=== PATIENT | male | born 1955 | race Caucasian/White ===

== ENCOUNTER 2019-10-14 05:52 | Emergency (ER) | payer OTHER ==
[2019-10-14 06:20] VITALS: BP 119/67; PULSE 85; TEMP 98.3; BMI 25.7
[2019-10-14] MEDS ORDERED: FAMOTIDINE 20 MG/50 ML IVPB 20 MG/50 ML MG IVPB ONE ×2 (07:28→07:57)
[2019-10-14] MEDS ORDERED: ACETAMINOPHEN 1000 MG/100 ML VIAL (NON FORMULARY) IVPB ONE (07:28)
--- NOTE | 2019-10-14 07:28 | PDOC ---
History of Present Illness - General Chief Complaint: Pain Stated Complaint: ABDOMINAL PAIN Time Seen by Provider: 10/14/19 07:21 - History of Present Illness Initial Comments: Srikanth Hyman is a 64yo man with a PMH of asthma/COPD, current smoking, frequent heartburn who presents reporting epigastric discomfort for approximately the past month. The sensation occurs every time he eats. He states that he feels that food becomes "stuck" in the epigastrium whenever he eats. He has tried taking Xantac at home without relief. He says that he has the discomfort after every meal; it is not related to position or time of day. He denies any associated chest pain, SOB, change in bowel habits though he does endorse several episodes of vomiting yesterday. Past History - Past Medical History Allergies/Adverse Reactions: Allergies Allergy/AdvReac Type Severity Reaction Status Date / Time No Known Allergies Allergy Verified 10/14/19 06:20 Home Medications: Ambulatory Orders Albuterol Sulfate Inhaler - [Ventolin HFA Inhaler -] 1 - 2 inh IH Q4H 12/10/12 Albuterol Sulfate Inhaler - [Ventolin HFA Inhaler -] 1 inh IH Q4H PRN #1 inh Budesonide/Formeterol Fumarate [SYMBICORT 160/4.5mcg -] 1 puff IH BID 10/14/19 Oxycodone HCl/Acetaminophen [Oxycodone-Acetaminophen 5-325] 1 tab PO TID PRN 01/28 Ranitidine [Zantac -] 150 mg PO DAILY 10/14/19 Asthma: Yes COPD: No - Psycho Social/Smoking Cessation Hx Smoking Status: Yes Smoking History: Unknown if ever smoked Have you smoked in the past 12 months: Yes Number of Cigarettes Smoked Daily: 5 'Breaking Loose' booklet given: 09/19/16 Hx Alcohol Use: Yes (previous heavy etoh use) Drug/Substance Use Hx: No Substance Use Type: None Review of Systems - Review of Systems Comments:: General: No fevers, no chills, no weight or appetite change, no malaise HEENT: No changes in vision, no changes in hearing, no congestion, no sore throat CV: No chest pain, no palpitations, no LE edema Pulm: No SOB, no cough, no wheezing GI: +Nausea, 3x vomiting, no change in bowel habits, no melena. Epigastric discomfort, see HPI : No frequency, no urgency, no dysuria Musc: No back pain, no joint swelling, no recent injury Skin: No rash, no lesions, no erythema Endo: No excessive thirst, no heat/cold intolerance Heme: No unusual bruising or bleeding, no swollen glands Neuro: No syncope, no numbness/tingling, no focal weakness Vasc: No claudication Psych: No recent change in mood, no SI or HI *Physical Exam - Vital Signs Last Vital Signs Temp Pulse Resp BP Pulse Ox 98.3 F 85 18 119/67 96 10/14/19 06:19 10/14/19 06:19 10/14/19 06:19 10/14/19 06:19 10/14/19 06:19 - Physical Exam General: Comfortable, no acute distress HEENT: Atraumatic, PERRL, EOMI, MMM, voice normal, normal neck ROM Cards: RRR, no murmur appreciated Pulm: Comfortable on room air, clear to auscultation bilaterally Abd: Soft, Minimal epigastric TTP. Nondistended, no rigidity, no guarding Ext: Atraumatic. No LE edema. ROM intact. WWP Skin: Normal color, no rashes or lesions Neuro: A&Ox3, CN grossly intact, normal speech, motor/sensory grossly intact and symmetric Psych: Mood appropriate to situation ED Treatment Course - LABORATORY CBC & Chemistry Diagram: 10/14/19 07:50 10/14/19 07:50 Medical Decision Making - Medical Decision Making 10/14/19 07:28 Srikanth Hyman is a 64yo man with a PMH of asthma/COPD, current smoking, frequent heartburn who presents reporting epigastric discomfort after eating for the past month. - Most likely GERD/gastritis but given age, smoking history will evaluate for cardiac causes of pain. - CBC, CMP, trop, EKG, CXR - Famotidine, acetaminophen 10/14/19 07:57 - EKG reviewed. NSR, HR 77, normal axis, normal intervals. No t-wave or ST changes - Labs pending 10/14/19 09:10 - Labs reviewed, unremarkable. Trop negative - CXR without acute pathology - Update pt. Given age and h/o smoking, will get second trop. Family reluctant to stay. Discussed rationale for repeat trop. Pt willing to remain for repeat test 10/14/19 09:49 - Pt now states that he does not want to wait for 2nd trop - Discussed again reasons for staying for repeat labs. Pt continues to decline. Will leave AMA - Will give information for GI follow up. Home care and return precautions to be discussed. 10/14/19 10:06 - Attempted to have pt sign AMA paperwork and discuss instructions. Pt no longer in his bed. Left prior to receiving paperwork - IV found under the pt's bed Discussed with Dr Antonio Samson PGY2 Discharge - Discharge Information Problems reviewed: Yes Clinical Impression/Diagnosis: Epigastric pain Condition: Stable Disposition: AGAINST MEDICAL ADVICE - Follow up/Referral Referrals: Mary Sumner MD [Primary Care Provider] - Bryan Arenas DO [Staff Physician] - Keron Demarco MD [Staff Physician] - - Patient Discharge Instructions Patient Printed Discharge Instructions: DI for Gastroesophageal Reflux Disease (GERD), GERD Diet Additional Instructions: Discharge Instructions: You were seen in the emergency department for upper abdominal discomfort. This is likely due to stomach irritation and acid reflux, though it is possible that it is related to a problem with your heart. You declined a second blood test to check your heart. Home Care and Follow Up: - Follow the GERD diet using the information provided - Take Xantac or Pepcid every day, even if you are feeling well, until you see a GI specialist - Follow up with GI within the next week. You have been given contact information for Dr Demarco and Dr Arenas. - Seek immediate care for worsening symptoms, severe pain, inability to eat, persistent vomiting, dehydration, or any other medical emergency. - Post Discharge Activity
[2019-10-14] MEDS ORDERED: ACETAMINOPHEN INJECTION 100 ML IVPB ONE (07:57)
[2019-10-14 08:26] LABS: BASO % 0.9 % (0-2.0); EOS % 4.9 % (0-4.5); HEMATOCRIT 42.2 % (35.4-49); LYMPH % 16.6 % (8-40); MCH 31.4 pg (25.7-33.7); MCHC 33.3 g/dl (32.0-35.9); MEAN CELL VOLUME 94.2 fl (80-96); MEAN PLT VOLUME 9.2 fl (7.5-11.1); MONO % 7.9 % (3.8-10.2); NEUT % 69.7 % (42.8-82.8); PLATELET COUNT 248 K/MM3 (134-434); RBC 4.48 M/mm3 (4.00-5.60); RDW 13.3 % (11.9-15.9)
[2019-10-14 08:51] LABS: ALBUMIN 3.4 g/dl (3.4-5.0); BILIRUBIN,TOTAL 0.3 mg/dL (0.2-1); BLOOD UREA NITROGEN 9.5 mg/dL (7-18); CALCIUM 8.4 mg/dL (8.5-10.1); CREATININE 0.9 mg/dL (0.55-1.3); POTASSIUM 3.8 mmol/L (3.5-5.1); TOT PROT 6.7 g/dl (6.4-8.2)
--- NOTE | 2019-10-14 10:10 | PDOC ---
Documentation entered by Allyson Santillan SCRIBE, acting as scribe for Shin Benavidez MD. Shin Benavidez MD: This documentation has been prepared by the Tyrell jim Brenda, SCRIBE, under my direction and personally reviewed by me in its entirety. I confirm that the documentation accurately reflects all work, treatment, procedures, and medical decision making performed by me. Attending Attestation - Resident Resident Name: Usha Samson - ED Attending Attestation I have performed the following: I have examined & evaluated the patient, The case was reviewed & discussed with the resident, I agree w/resident's findings & plan, Exceptions are as noted - HPI HPI: 10/14/19 09:31 The patient is a 64 y/o male, with hx/o copd, heavy smoking c/o epigastric abdominal pain, worse shortly post prandially, with early satiety. pt denies cp /sob/n/v/d/melena/brbpr Allergies: None Known Past Surgical History: None reported Social History: Current everyday cigarette smoker (approximately 5 cigarettes/ day). Denies ETOH and recreational drug use. PCP: Dr. Mary Sumner 10/14/19 10:06 - Physicial Exam PE: 10/14/19 10:08 Patient is awake and alert, well-nourished, in no significant distress Normocephalic and atraumatic PERRLA, EOMI, no scleral icterus Neck is supple CTA RRR Abdomen is soft, nondistended, minimal epigastric discomfort deep palpation only , Davis's is negative, negative tenderness at McBurney's, negative CVA tenderness bilaterally No lower extremity edema - Medical Decision Making 10/14/19 10:09 Patient 64-year-old male with history of COPD, heavy smoking who presents with atraumatic epigastric pain that is exacerbated postprandially as well as early satiety for the past several weeks. In the ER, patient is awake and alert, nontoxic-appearing; CBC/CMP/cardiac enzymes within normal limit. Symptoms not consistent with pancreatitis. EKG shows no evidence of acute ischemia. Chest x -ray reveals no evidence of cardiomegaly/infiltrate or effusion. Patient refused to stay in the ER for repeat cardiac enzymes and wished to sign out AMA. Patient left prior to signing his paperwork.
--- NOTE | 2019-10-14 23:14 | EKG ---
Test Reason : Blood Pressure : / mmHG Vent. Rate : 077 BPM Atrial Rate : 077 BPM P-R Int : 132 ms QRS Dur : 084 ms QT Int : 394 ms P-R-T Axes : 062 028 049 degrees QTc Int : 445 ms NORMAL SINUS RHYTHM NORMAL ECG WHEN COMPARED WITH ECG OF 26-NOV-2014 10:02, VENT. RATE HAS INCREASED Confirmed by EARNEST GRANT MD ([id number]) on 10/14/2019 11:14:20 PM Referred By: Confirmed By:EARNEST GRANT MD
== END 2019-10-14 10:15 | disposition left against medical advice (07) ==
LOC: JER 05:52
PROC: 3E033GC Introduction of Other Therapeutic Substance into Peripheral Vein, Percutaneous Approach (ICD-10-PCS; principal; 2019-10-14)
PROC: 3E033NZ Introduction of Analgesics, Hypnotics, Sedatives into Peripheral Vein, Percutaneous Approach (ICD-10-PCS; 2019-10-14)
DX: K21.9 Gastro-esophageal reflux disease without esophagitis (principal); R10.13 Epigastric pain; J44.9 Chronic obstructive pulmonary disease, unspecified; J45.998 Other asthma; F17.210 Nicotine dependence, cigarettes, uncomplicated
CPT/HCPCS: 36415; 71046-TC-FY; 80053; 82550; 84484; 85025; 93005; 93010; 96365; 96375; 99283-25; J0131

== ENCOUNTER 2020-05-01 21:43 | Emergency (ER) | payer OTHER ==
--- NOTE | 2020-05-01 22:01 | PDOC ---
History of Present Illness - General Chief Complaint: Injury Stated Complaint: FALL/BROKEN LFT ARM Time Seen by Provider: 05/01/20 21:50 Past History - Medical History Allergies/Adverse Reactions: Allergies Allergy/AdvReac Type Severity Reaction Status Date / Time No Known Allergies Allergy Verified 05/01/20 22:01 Home Medications: Ambulatory Orders Albuterol Sulfate Inhaler - [Ventolin HFA Inhaler -] 1 - 2 inh IH Q4H 12/10/12 Albuterol Sulfate Inhaler - [Ventolin HFA Inhaler -] 1 inh IH Q4H PRN #1 inh 11/26/14 Budesonide/Formeterol Fumarate [SYMBICORT 160/4.5mcg -] 1 puff IH BID 10/14/19 Oxycodone HCl/Acetaminophen [Oxycodone-Acetaminophen 5-325] 1 tab PO TID PRN 10/14/19 Ranitidine [Zantac -] 150 mg PO DAILY 10/14/19 Oxycodone HCl/Acetaminophen [Percocet 10-325 mg Tablet] 1 each PO Q6H PRN #12 tablet MDD 4 05/02/20 Asthma: Yes COPD: No - Psycho-Social/Smoking History Smoking Status: Yes Smoking History: Current some day smoker Have you smoked in the past 12 months: Yes Number of Cigarettes Smoked Daily: 5 Information on smoking cessation initiated: No 'Breaking Loose' booklet given: 09/19/16 - Substance Abuse Hx (Audit-C & DAST Scrn) How often the patient has a drink containing alcohol: Monthly or less Number of drinks the patient has on a typical day: 1 or 2 How often the patient has six or more drinks on one occasion: Less than monthly Score: In Men: 4 or > Positive; In Women: 3 or > Positive: 2 Screen Result (Pos requires Nsg. Audit-10AR): Negative In the last yr the pt used illegal drug/Rx for NonMed reason: No Score: Yes response is considered Positive: 0 Screen Result (Positive result requires Nsg. DAST-10): Negative *Physical Exam - Vital Signs Last Vital Signs Temp Pulse Resp BP Pulse Ox 98.8 F 68 20 112/81 96 05/01/20 21:50 05/01/20 21:50 05/01/20 21:50 05/01/20 21:50 05/01/20 21:50 Procedures - Consent Consent obtained: Written, From Patient - Splinting Splint Location: Left: Elbow Pre-Proc Neuro Vasc Exam: normal Hand-Made Type: orthoglass Splint Type: Yes: Long Arm Post-Proc Neuro Vasc Exam: normal Broderick Bandage: yes Sling: Yes Complications: No Post splint xray: Yes Good repositioning: Yes - Joint Reduction Left Joint Reduction Site: left: Radial Head (Radius and ulna from elbow) Pre-Procedure NV Exam: normal Conscious Sedation: Yes (Propofol 200mg) Reduction Attempts: 1 Procedure: Traction Counter Traction Post-Procedure NV Exam: normal Complications: No Post Joint Reduction Film: joint reduced Splint: Yes Immobilized: Yes (Sling) ED Treatment Course - LABORATORY CBC & Chemistry Diagram: 05/01/20 23:28 05/01/20 23:28 Medical Decision Making - Medical Decision Making 05/01/20 22:34 HPI: 64yo M hx chronic back pain (on 10 percocet c/4 hours) and asthma BIBA from home for mechanical fall from standing 1.5hrs ago c/o L elbow pain and deformity, worse with movement, better when holding still against body. Endorses L 4/5th digit paresthesias. No pain meds tried. Pt was walking outside on wet hill with slippers on and slipped in rain falling backwards and fell on outstretched L arm. Pt able to stand and walk after. Had minimal pain but wasn't until got home and family noticed deformity that pt's pain worsened and called EMS. Pt in [facility] prior to fall. Denies head injury, LOC, back pain, neck pain, blood thinner use, alcohol, smoking, drugs, hip pain, focal weakness, dizziness, headache, N/V, vision changes, F/C, syncope, seizure-like activity, abdominal pain, other injuries, wrist or hand pain, shoulder pain. PCP - [facility] ROS: Constitutional: Positive for fall. Negative for chills, fever, fatigue, diaphoresis. HENT: Negative for sore throat, rhinorrhea, congestion. Eyes: Negative for visual disturbance. Respiratory: Negative for shortness of breath, cough, and wheezing. Cardiovascular: Negative for chest pain, palpitations, and leg swelling. Gastrointestinal: Negative for abdominal pain, blood in stool, constipation, diarrhea, nausea, and vomiting. Genitourinary: Negative for dysuria, flank pain, and hematuria. Musculoskeletal: Positive for L elbow pain. Negative for myalgias, back pain, and neck pain. Skin: Negative for rash. Neurological: Negative for light-headedness, dizziness, vertigo, syncope, weakness, numbness and headaches. Psychiatric/Behavioral: Negative for behavioral problems and confusion. PE: Gen: Alert, NAD, uncomfortable-appearing, holding left arm with elbow flexed against body in sling HEENT: PERRL, EOMI, MMM, NCAT. No conjunctival pallor. Sclera are non-icteric. CV: Regular rate and rhythm. No murmurs, rubs, or gallops. PULM: No resp distress. CTAB, no wheezes, rales, or rhonchi. ABD: soft, NT/ND, no rebound tenderness or guarding, no CVA tenderness. BACK: No TTP of c/t/l-spine. No step-offs or deformities. NEURO: AAOx3. PERRL. CN 2-12 intact. Difficult to assess strength in LUE 2/2 pain, 5/5 strength in all other extremities. Sensation to light touch intact in all extremities.No abnormal nystagmus. Normal gait. MSK: Pelvis stable intact nontender. No bony deformities other than LUE. 2+ pulses in all extremities. EXTREMITIES: No cyanosis. No clubbing. No edema. LUE: +elbow deformity/dislocation. Diffusely tender mid-forearm through distal humerus. No TTP of shoulder, proximal humerus, distal forearm, wrist, or hand. Limited ROM of L shoulder/elbow/wrist 2/2 pain in elbow. Moves digits appropriately. SILT in all distributions. Compartments soft. PSYCH: Normal mood and thought pattern. SKIN: Warm and dry. Normal capillary refill. No rashes. No jaundice. MDM: 64yo M hx chronic back pain (on 10 percocet c/4 hours) and asthma BIBA from home for mechanical fall from standing 1.5hrs ago c/o L elbow pain and deformity. neurologically intact, LUE neurovascularly intact, deformity L elbow. Obtain LUE imaging to eval for dislocation and fx. Mechanical fall - no concern for syncope or seizure. Neurologically intact and no c-spine TTP/pain, but due to distracting injury and age and fall, obtain CTH/c-spine to r/o ICH or fx or subluxation. -Pre-op labs -EKG -Pain management: 50 fentanyl -Zofran 4 -XR L humerus, elbow, and forearm -Consult ortho -CTH/c-spine due to distracting injury -Dispo: likely d/c home pending w/u and reduction 05/01/20 23:08 XR read: notable for ulnar and radial dislocation Consulted Dr Carrasquillo - will come see pt. Consent obtained for conscious sedation - form signed by pt. 05/02/20 00:16 Propofol 200mg used for conscious sedation Reduction performed with Dr Carrasquillo Splint and sling placed with Dr Carrasquillo Pre and post-neurovascular exams intact, no abnormalities Post-reduction XR shows correct positioning No complications 05/02/20 01:24 CTH reviewed: no acute pathology CT c-spine reviewed: no acute significant pathology Pt ambulated without difficulty. Tolerated PO. Pt takes 10 percocet c/4hrs, managed by pain doctor Dr Nuñez. Percocet Rx sent to pharmacy. Will discharge home with 1wk ortho f/u. Return precautions given. Pt understands all discharge instructions and all questions were answered. Discharge - Discharge Information Problems reviewed: Yes Clinical Impression/Diagnosis: Dislocation, elbow closed, Fall, History of conscious sedation Condition: Improved Disposition: HOME - Admission No - Additional Discharge Information Prescriptions: Oxycodone HCl/Acetaminophen [Percocet 10-325 mg Tablet] 1 each PO Q6H PRN #12 tablet MDD 4 PRN Reason: Pain - Follow up/Referral Referrals: Mary Sumner MD [Primary Care Provider] - Louie Carrasquillo MD [Staff Physician] - - Patient Discharge Instructions Patient Printed Discharge Instructions: DI for Elbow Dislocation, DI for Moderate Sedation Additional Instructions: You have been seen in the Emergency Department for your elbow dislocation. It has been reduced into the correct location and a cast and sling was placed. Follow-up with Dr Carrasquillo (the Orthopedic Surgeon) in 1 week. Call his office in the morning to make an appointment. If you experience pain, you can take Tylenol or Ibuprofen as directed on the medication bottle, but do not exceed 3g of Ibuprofen or 4g of Tylenol a day. We have also sent a Percocet prescription to your pharmacy and you can take as prescribed as needed for additional pain. Return to the Emergency Department immediately if you experience numbness, inability to move your fingers, fever, worsening pain not controlled by medications, or any other new or worsening symptom. - Post Discharge Activity Work/Back to School Note: Back to Work
[2020-05-01 22:05] VITALS: BMI 25.2
[2020-05-01] MEDS ORDERED: ONDANSETRON 4 MG/2 ML VIAL IVPUSH ONE (22:16)
--- NOTE | 2020-05-01 22:42 | PDOC ---
Documentation entered by Kumar Vega SCRIBE, acting as scribe for Jessica Wise DO. Jessica Wise DO: This documentation has been prepared by the Sienna jim inKumar SCRIBE, under my direction and personally reviewed by me in its entirety. I confirm that the documentation accurately reflects all work, treatment, procedures, and medical decision making performed by me. Attending Attestation - Resident Resident Name: Pamela Resendez - ED Attending Attestation I have performed the following: I have examined & evaluated the patient, The case was reviewed & discussed with the resident, I agree w/resident's findings & plan, Exceptions are as noted - HPI HPI: 05/01/20 22:43 The patient is a 64 year old male with a significant past medical history of asthma, COPD, current smoking, and frequent heartburn who presents to the ED for evaluation of an injured left arm s/p fall from standing about 1.5 hours ago. The patient reports he was outside walking on a wet hill wearing slippers when h e fell backwards, causing him to land on his outstretched left hand endorses. He also endorses paresthesia to his fourth and fifth left digits. The patient denies LOC, anticoagulation usage, shoulder pain, fever, chills, shortness of breath, or chest pain. He denies any other symptoms. Allergies: None Known Past Surgical History: None reported Social History: Current everyday cigarette smoker (approximately 5 cigarettes/day). Denies alcohol and recreational drug use. PCP: Dr. Mary Sumner - Physicial Exam PE: 05/01/20 22:43 Constitutional: Awake, alert, oriented. No acute distress. Head: Normocephalic. Atraumatic Eyes: PERRL. EOMI. Conjunctivae are not pale. ENT: Mucous membranes are moist and intact. Neck: Supple. Full ROM. no c/t/l spine ttp, stepoffs or deformities Cardiovascular: Regular rate. Regular rhythm. S1, S2 regular. Distal pulses are 2+ and symmetric. Pulmonary/Chest: No evidence of respiratory distress. Clear to auscultation bilaterally No wheezing, rales or rhonchi. Abdominal: Soft and non-distended. There is no tenderness. No rebound, guarding or rigidity. No organomegaly. No palpable masses. Good bowel sounds. Back: No CVA tenderness. Musculoskeletal: +diffuse tenderness from mid forearm to distal humerus, limited ROM of left upper extremity secondary to pain. No edema. No cyanosis. No clubbing. Nocalf tenderness. Radial/pedal pulses are intact and 2+ bilaterally Skin: Skin is warm and dry. No petechiae. No purpura. Neurological: Alert and oriented to person, place, and time. Cranial nerves II-XII are grossly intact. Normal speech. Strength is grossly symmetric. No sensory deficits. Psychiatric: Good eye contact. Normal interaction, affect and behavior. 05/01/20 22:47 - Medical Decision Making 05/01/20 22:37 a/p: 64yo male s/p a mechanical slip and fall outside landing on a extended outstretched hand- now with L arm pain -pain at the elbow and the distal humerus -neurovasc intact -concern for fx dislocation -pain meds given, iv placed, pt taken to xray stat -will send for ct head and c spine 05/01/20 22:40 pt with dislocated elbow 05/01/20 23:[address] carrasquillo, will come into help reduce the elbow 05/01/20 23:26 pt consented for conscious sedation 05/02/20 00:09 pt has been reduced under conscious sedation by Dr. Carrasquillo 05/02/20 00:12 xray shows good alignment pt awake from conscious sedation will send for head/ct spine 05/02/20 01:[address] FINDINGS: No acute intracranial abnormality. No hemorrhage. The skull is intact. There are nasal bone fractures but no overlying soft tissue swelling. Could be old. However correlate with any tenderness/trauma to the nose. C SPINE CT FINDINGS: Negative for cervical spine fracture or malalignment. Degenerative changes. Small blebs right lung apex. Read by: Dr. Wilder Vazquez 05/02/20 01:16 head and c spine neg will po challenge, ambulate and dc to home 05/02/20 01:18 Heart Score/ECG Review - ECG Intrepretation Comment:: 05/02/20 00:31 sinus at 68, nl axis, nl intervals, no acute st/t wave findings Discharge - Discharge Information Problems reviewed: Yes Clinical Impression/Diagnosis: Dislocation, elbow closed, Fall, History of conscious sedation Condition: Improved Disposition: HOME - Admission No - Additional Discharge Information Prescriptions: Oxycodone HCl/Acetaminophen [Percocet 5-325 mg Tablet] 1 tab PO Q6H PRN #12 tablet MDD 4 PRN Reason: Moderate Pain - Follow up/Referral Referrals: Mary Sumner MD [Primary Care Provider] - Louie Carrasquillo MD [Staff Physician] - - Patient Discharge Instructions Patient Printed Discharge Instructions: DI for Elbow Dislocation, DI for Moderate Sedation Additional Instructions: You have been seen in the Emergency Department for your elbow dislocation. It has been reduced into the correct location and a cast and sling was placed. Follow-up with Dr Carrasquillo (the Orthopedic Surgeon) in 1 week. Call his office in the morning to make an appointment. If you experience pain, you can take Tylenol or Ibuprofen as directed on the medication bottle, but do not exceed 3g of Ibuprofen or 4g of Tylenol a day. We have also sent a Percocet prescription to your pharmacy and you can take as prescribed as needed for additional pain. Return to the Emergency Department immediately if you experience numbness, inability to move your fingers, fever, worsening pain not controlled by medications, or any other new or worsening symptom. - Post Discharge Activity Work/Back to School Note: Back to Work Procedures - Consent Consent obtained: Written, From Patient - Joint Reduction Left Joint Reduction Site: left: Posterior Dislocation (elbow dislocation) Pre-Procedure NV Exam: normal Conscious Sedation: Yes (propofol) Reduction Attempts: 1 Procedure: Traction Counter Traction Post-Procedure NV Exam: normal Complications: No Post Joint Reduction Film: joint reduced Splint: Yes Immobilized: Yes Progress: 05/02/20 00:25 Dr. carrasquillo at the bedside to reduce the fracture
[2020-05-01] MEDS ORDERED: SODIUM CHLORIDE 0.9% 500 ML INFUS.BAG IV ONE (22:58)
[2020-05-01] MEDS ORDERED: PROPOFOL 200 MG/20 ML VIAL IVPUSH ONE (23:17)
[2020-05-01 23:35] LABS: EOS % 1.8 % (0-4.5); HEMATOCRIT 41.7 % (35.4-49); HEMOGLOBIN 13.6 GM/dL (11.7-16.9); LYMPH % 17.9 % (8-40); MCH 29.8 pg (25.7-33.7); MCHC 32.7 g/dl (32.0-35.9); MEAN CELL VOLUME 91.2 fl (80-96); MEAN PLT VOLUME 9.8 fl (7.5-11.1); MONO % 6.2 % (3.8-10.2); NEUT % 73.1 % (42.8-82.8); PLATELET COUNT 262 K/MM3 (134-434); RBC 4.58 M/mm3 (4.00-5.60); RDW 14.7 % (11.9-15.9); WHITE BLOOD COUNT 12.3 K/mm3 (4.0-10.0)
[2020-05-01] MEDS ORDERED: RAPID SEQUENCE INTUBATION KIT NR ONE (23:35)
[2020-05-01 23:43] LABS: INR 0.93 (0.83-1.09)
[2020-05-01 23:45] LABS: ACTIVATED PTT 25.3 SECONDS (25.2-36.5)
[2020-05-02 00:17] LABS: ALBUMIN 3.7 g/dl (3.4-5.0); BILIRUBIN,TOTAL 0.3 mg/dL (0.2-1); BLOOD UREA NITROGEN 10.7 mg/dL (7-18); CALCIUM 8.6 mg/dL (8.5-10.1); CREATININE 0.8 mg/dL (0.55-1.3); POTASSIUM 4.1 mmol/L (3.5-5.1); TOT PROT 7.1 g/dl (6.4-8.2)
[2020-05-02 03:31] VITALS: BP 133/77; PULSE 94; TEMP 97.3
--- NOTE | 2020-05-02 12:10 | EKG ---
Test Reason : Blood Pressure : / mmHG Vent. Rate : 068 BPM Atrial Rate : 068 BPM P-R Int : 126 ms QRS Dur : 086 ms QT Int : 406 ms P-R-T Axes : 067 029 053 degrees QTc Int : 431 ms NORMAL SINUS RHYTHM NORMAL ECG WHEN COMPARED WITH ECG OF 14-OCT-2019 07:47, NO SIGNIFICANT CHANGE WAS FOUND Confirmed by LENORA PONCE MD ([id number]) on 05/02/2020 12:10:02 PM Referred By: Confirmed By:LENORA PONCE MD
--- NOTE | 2020-05-02 14:17 | CON.ORTH ---
Consult Consult Specialty:: orthopedic surgery Reason for Consultation:: right elbow pain - History of Present Illness Chief Complaint: right elbow pain History of Present Illness: 64y M here for L elbow pain after trip and fall noted pain, deformity after fall notes no numbness or tingling no pain elsewhere no previous elbow injuries - History Source History Provided By: Patient, Significant Other, Medical Record Limitations to Obtaining History: No Limitations - Past Medical History Pulmonary: Yes: Asthma Musculoskeletal: Yes: Chronic low back pain - Alcohol/Substance Use Hx Alcohol Use: Yes (previous heavy etoh use) History of Substance Use: reports: None - Smoking History Smoking history: Current some day smoker Have you smoked in the past 12 months: Yes Aproximately how many cigarettes per day: 5 - Social History Usual Living Arrangement: With Significant Other ADL: Independent Occupation: Disabled History of Recent Travel: No Home Medications - Allergies Allergies/Adverse Reactions: Allergies Allergy/AdvReac Type Severity Reaction Status Date / Time No Known Allergies Allergy Verified 05/01/20 22:01 - Home Medications Home Medications: Ambulatory Orders Albuterol Sulfate Inhaler - [Ventolin HFA Inhaler -] 1 - 2 inh IH Q4H 12/10/12 Albuterol Sulfate Inhaler - [Ventolin HFA Inhaler -] 1 inh IH Q4H PRN #1 inh 11/26/14 Budesonide/Formeterol Fumarate [SYMBICORT 160/4.5mcg -] 1 puff IH BID 10/14/19 Oxycodone HCl/Acetaminophen [Oxycodone-Acetaminophen 5-325] 1 tab PO TID PRN 10/14/19 Ranitidine [Zantac -] 150 mg PO DAILY 10/14/19 Oxycodone HCl/Acetaminophen [Percocet 10-325 mg Tablet] 1 each PO Q6H PRN #12 tablet MDD 4 05/02/20 Review of Systems - Review of Systems Constitutional: denies: Chills, Diaphoresis, Fever Eyes: denies: Blind Spots, Blurred Vision, Double Vision HENT: denies: Difficult Swallowing, Ear Discharge, Ear Pain Cardiovascular: denies: Chest Pain, Edema, Palpitations Physical Exam for Ortho Vital Signs: Vital Signs Temperature 97.3 F L 05/02/20 01:49 Pulse Rate 94 H 05/02/20 01:49 Respiratory Rate 19 05/02/20 01:49 Blood Pressure 133/77 07/23/20 01:49 O2 Sat by Pulse Oximetry (%) 94 L 05/02/20 01:49 Constitutional: Yes: Well Nourished, No Distress, Anxious Neck: Yes: Supple Cardiovascular: Yes: Regular Rate and Rhythm Respiratory: Yes: Regular Gastrointestinal: Yes: Soft. No: Distention Labs: CBC, BMP 05/01/20 23:28 05/01/20 23:28 INR, PTT INR 0.93 (0.83-1.09) 05/01/20 23:28 - Upper Extremity Method of Injury: Yes: Fall Elbow: Yes: Left, Deformity, Ecchymosis, Pain, Swelling, Tenderness, Other (distally sensation intact to LT, 2+ radial pulse, thumbs up, ok sign, finger cross intact). No: Bone Exposed Imaging - Results X-ray: Report Reviewed, Image Reviewed (elbow dislocation noted) Problem List - Problems (1) Dislocation, elbow closed Assessment/Plan: I reviewed today's findings with the patient and his advised he suffered a dislocation urgent reduction with sedation recommended reviewed small risk of neurovascular injury possible redislocation, possible need for surgical stabilization pt voiced understanding and elected to proceed the patient was sedated by the ED staff the elbow was hung in traction a manual reduction was effected, the elbow was felt to reduce a long arm splint was placed with the forearm in supation neurovascular exam remains intact after reduction post reduction radiographs show concentric reduction follow up in the office within 1 week Problems reviewed: Yes Code(s): S53.106A - UNSP DISLOCATION OF UNSP ULNOHUMERAL JOINT, INIT ENCNTR Qualifiers: Encounter type: initial encounter Laterality: left Qualified Code(s): S53.105A - Unspecified dislocation of left ulnohumeral joint, initial encounter
== END 2020-05-02 01:46 | disposition home or self-care (01) ==
LOC: JER 21:43
PROC: 3E033NZ Introduction of Analgesics, Hypnotics, Sedatives into Peripheral Vein, Percutaneous Approach (ICD-10-PCS; principal; 2020-05-01)
PROC: 3E033GC Introduction of Other Therapeutic Substance into Peripheral Vein, Percutaneous Approach (ICD-10-PCS; 2020-05-01)
DX: S53.145A Lateral dislocation of left ulnohumeral joint, initial encounter (principal)
CPT/HCPCS: 36415; 70450-TC; 72125-TC; 73060-TC-LT-FY; 73070-TC-LT-FY; 73090-TC-LT-FY; 80053; 85025; 85610; 85730; 86850; 86900; 86901; 93005; 93010; 99285-25

== ENCOUNTER 2020-08-07 01:33 | Inpatient (IN) | payer OTHER ==
--- NOTE | 2020-08-07 02:03 | PDOC ---
History of Present Illness - General Chief Complaint: Pain, Acute Stated Complaint: ABD PAIN Time Seen by Provider: 08/07/20 02:02 History Source: Patient, Old Records Exam Limitations: Language Barrier - History of Present Illness Initial Comments: 08/07/20 02:02 Srikanth Hyman is a 65M with PMH asthma/COPD, smoker, frequent heartburn, presenting with epigastric pain and difficulty tolerating PO. Patient has had 4 days of eating and having food stuck in his upper abdomen. Last night ate some chicken and it felt like it was stuck in his stomach, today ate one piece of steak and it also felt stuck. Has been unable to tolerate secretions for 2 days, spitting up constantly. Denies fever, chills N/V/C/D, chest pain, urinary sx, TIM, vision problems, dizziness. Intermittent epigastric pain described as cramping at times unrelated to food intake. Never had an issue like this before. No thyroid disease or neck pain. Last BM yesterday and normal, no abd surgeries. Has known GERD, tried taking medications without effect. NKDA. Denies alcohol/drugs/tobacco. Past History - Medical History Allergies/Adverse Reactions: Allergies Allergy/AdvReac Type Severity Reaction Status Date / Time No Known Allergies Allergy Verified 08/07/20 01:56 Home Medications: Ambulatory Orders Albuterol Sulfate Inhaler - [Ventolin HFA Inhaler -] 1 - 2 inh IH Q4H 12/10/12 Albuterol Sulfate Inhaler - [Ventolin HFA Inhaler -] 1 inh IH Q4H PRN #1 inh 11/26/14 Budesonide/Formeterol Fumarate [SYMBICORT 160/4.5mcg -] 1 puff IH BID 10/14/19 Oxycodone HCl/Acetaminophen [Oxycodone-Acetaminophen 5-325] 1 tab PO TID PRN 10/14/19 Ranitidine [Zantac -] 150 mg PO DAILY 10/14/19 Oxycodone HCl/Acetaminophen [Percocet 10-325 mg Tablet] 1 each PO Q6H PRN #12 tablet MDD 4 05/02/20 Asthma: Yes COPD: No - Psycho-Social/Smoking History Smoking Status: Yes Smoking History: Current every day smoker Have you smoked in the past 12 months: Yes Number of Cigarettes Smoked Daily: 6 Information on smoking cessation initiated: No 'Breaking Loose' booklet given: 09/19/16 - Substance Abuse Hx (Audit-C & DAST Scrn) How often the patient has a drink containing alcohol: Monthly or less Number of drinks the patient has on a typical day: 1 or 2 How often the patient has six or more drinks on one occasion: Less than monthly Score: In Men: 4 or > Positive; In Women: 3 or > Positive: 2 Screen Result (Pos requires Nsg. Audit-10AR): Negative In the last yr the pt used illegal drug/Rx for NonMed reason: No Score: Yes response is considered Positive: 0 Screen Result (Positive result requires Nsg. DAST-10): Negative Review of Systems - Review of Systems Able to Perform ROS?: Yes Constitutional: No: Symptoms Reported HEENTM: No: Symptoms Reported Respiratory: No: Symptoms reported Cardiac (ROS): No: Symptoms Reported ABD/GI: Yes: Difficulty Swallowing, Nausea, Poor Appetite, Poor Fluid Intake, Vomiting. No: Constipated, Diarrhea, Abdominal cramping : No: Symptoms Reported Musculoskeletal: No: Symptoms Reported Integumentary: No: Symptoms Reported Neurological: No: Symptoms reported Endocrine: No: Symptoms Reported Hematologic/Lymphatic: No: Symptoms Reported All Other Systems: Reviewed and Negative *Physical Exam - Vital Signs Last Vital Signs Temp Pulse Resp BP Pulse Ox 98.2 F 86 18 140/83 98 08/07/20 01:35 08/07/20 01:35 08/07/20 01:35 08/07/20 01:35 08/07/20 01:35 - Physical Exam General Appearance: Yes: Nourished, Appropriately Dressed, Other (sitting in bed, spits into a cup every 2 minutes). No: Apparent Distress HEENT: positive: EOMI, AKUA, Normal Voice, Symmetrical, Pharynx Normal, Hearing Grossly Normal. negative: Scleral Icterus (R), Scleral Icterus (L), Pharyngeal Erythema, Tonsillar Exudate, Tonsillar Erythema Neck: positive: Trachea midline, Normal Thyroid, Supple. negative: Tender, Rigid, Lymphadenopathy (R), Lymphadenopathy (L), Tender lateral, Tender midline, Thyromegaly Respiratory/Chest: positive: Lungs Clear, Normal Breath Sounds. negative: Chest Tender, Respiratory Distress, Accessory Muscle Use, Crackles, Rales, Rhonchi, Stridor, Wheezing Cardiovascular: positive: Regular Rhythm, Regular Rate. negative: Murmur Gastrointestinal/Abdominal: positive: Normal Bowel Sounds, Tender (epigastric), Flat, Soft. negative: Organomegaly, Pulsatile Mass, Protuberent, Distended, Guarding, Rebound Musculoskeletal: positive: Normal Inspection. negative: CVA Tenderness, Dec reased Range of Motion, Vertebral Tenderness Extremity: positive: Normal Capillary Refill, Normal Inspection, Normal Range of Motion, Pelvis Stable. negative: Tender, Pedal Edema, Swelling, Calf Tenderness Integumentary: positive: Normal Color, Dry, Warm Neurologic: positive: Fully Oriented, Alert, Normal Mood/Affect, Normal Response ED Treatment Course - LABORATORY CBC & Chemistry Diagram: 08/07/20 02:47 08/07/20 04:57 - RADIOLOGY Radiograph Interpretation: 08/07/20 04:21 Stone Gibbs MD wrote on Aug 07, 2020 at 04:17 AM: Referring Physician: LANE BAEZ Patient Name: SRIKANTH HYMAN THIS IS A PRELIMINARY REPORT DATE OF SERVICE: 2020-08-07 03:04:57 IMAGES: 703 EXAM: CHEST CT WITHOUT CONTRAST HISTORY: Left food bolus/impaction dysphagia COMPARISON: 02/08/19 FINDINGS: There is no aortic aneurysm. There is no significant mediastinal or hilar adenopathy. The heart size is normal. The trachea and bronchi are patent. There is no pleural or pericardial effusion. The lungs are clear. No change in multiple right pleural nodules/plaques. The liver is fatty. There is moderate distention of the esophagus with debris, possibly indicating achalasia, but there is no discrete impacted bolus. No paraesophageal edema. IMPRESSION: Possible achalasia without an obvious impacted food bolus. Stable right lung pleural nodules/plaques. Fatty liver. Medical Decision Making - Medical Decision Making 08/07/20 03:17 Patient reports a few days of difficulty tolerating secretions with poor PO intake, nausea. No history of diabetes and no prior esophageal pathology or gastroparesis. Possible food bolus impaction vs. achalasia vs. stricture. Getting basic labs, CXR, ECG. CT non-con of chest for eval esophagus for food bolus. Pepcid and Zofran for symptom control. Unable to tolerate PO liquids without spitting up. 08/07/20 04:22 CT report shows debris in esophagus without obvious food bolus consistent with achalasia. Will admit patient and consult GI. Patient otherwise 08/07/20 04:26 Lab notable for: - K elevated but hemolyzed, will recheck - remaining labs checked and WNL Will admit for GI eval in the morning, likely swallow study vs. endoscopy 08/07/20 05:[address] Arenas, recommends NPO status, will evaluate later today. Discussed case with C[facility] ADMINISTRATOR [place], admitted to Med/Surg. 08/07/20 05:48 Dr. Arenas would like rapid PCR testing for Endoscopy suite. Dr. Loo contacted and approves. Lab contacted and upgraded testing. 08/07/20 07:02 Repeat K normal, repeat BMP Na normal. Discharge - Discharge Information Problems reviewed: Yes Clinical Impression/Diagnosis: Abdominal pain Qualifiers: Abdominal location: epigastric Qualified Code(s): R10.13 - Epigastric pain Difficulty swallowing Qualifiers: Dysphagia type: unspecified Qualified Code(s): R13.10 - Dysphagia, unspecified Condition: Fair - Admission Yes - Follow up/Referral - Patient Discharge Instructions - Post Discharge Activity
--- NOTE | 2020-08-07 02:05 | PDOC ---
Attending Attestation - Resident Resident Name: Ruy Stephens - ED Attending Attestation I have performed the following: I have examined & evaluated the patient, The case was reviewed & discussed with the resident, I agree w/resident's findings & plan - HPI HPI: 08/07/20 02:53 see resident hpi - Physicial Exam PE: 08/07/20 02:53 see resident exam - Medical Decision Making 08/07/20 02:53 65-year-old male with discomfort when attempting to eat, patient reports feeling like his food is getting stuck, there is no history of vomiting, he has been producing what he reports is extra saliva and spitting all day Per patient his primary care had him set up for outpatient endoscopy referral prior to Covid which was delayed EKG within normal limits We will admit to medical service due to inability to tolerate p.o. GI consult from the emergency department Discharge - Discharge Information Problems reviewed: Yes Clinical Impression/Diagnosis: Abdominal pain Condition: Fair - Follow up/Referral Referrals: Mary Sumner MD [Primary Care Provider] - - Patient Discharge Instructions - Post Discharge Activity
[2020-08-07] MEDS ORDERED: FAMOTIDINE 20 MG/50 ML IVPB 20 MG/50 ML MG IVPB ONE (02:28)
[2020-08-07 03:01] LABS: BASO % 0.4 % (0-2.0); HEMATOCRIT 43.6 % (35.4-49); HEMOGLOBIN 14.1 GM/dL (11.7-16.9); LYMPH % 8.4 % (8-40); MCHC 32.5 g/dl (32.0-35.9); MEAN CELL VOLUME 86.2 fl (80-96); MEAN PLT VOLUME 9.3 fl (7.5-11.1); MONO % 6.8 % (3.8-10.2); NEUT % 83.4 % (42.8-82.8); PLATELET COUNT 282 K/MM3 (134-434); RBC 5.06 M/mm3 (4.00-5.60); RDW 17.2 % (11.9-15.9); WHITE BLOOD COUNT 13.2 K/mm3 (4.0-10.0)
[2020-08-07 03:10] LABS: INR 0.94 (0.83-1.09); PROTHROMBIN TIME (PATIENT) 11.4 SEC (9.7-13.0)
[2020-08-07 03:13] LABS: ACTIVATED PTT 33.7 SECONDS (25.2-36.5)
[2020-08-07 03:26] LABS: CHLORIDE 102 mmol/L (98-107); SODIUM 121 mmol/L (136-145)
[2020-08-07 03:28] LABS: ALBUMIN 3.6 g/dl (3.4-5.0); BLOOD UREA NITROGEN 9.4 mg/dL (7-18); CALCIUM 8.4 mg/dL (8.5-10.1); CO2 22 mmol/L (21-32)
[2020-08-07 03:29] LABS: GLUCOSE,RANDOM 79 mg/dL (74-106)
[2020-08-07 03:32] LABS: CREATININE 0.9 mg/dL (0.55-1.3)
[2020-08-07 03:33] LABS: TOT PROT 8.9 g/dl (6.4-8.2)
[2020-08-07 03:34] LABS: ALK PHOS 100 U/L (45-117)
[2020-08-07 04:18] LABS: ANION GAP -3 MMOL/L (8-16); POTASSIUM > 10.0 mmol/L (3.5-5.1); SGOT/AST 181 U/L (15-37)
[2020-08-07 05:30] LABS: POTASSIUM 4.1 mmol/L (3.5-5.1)
--- NOTE | 2020-08-07 05:38 | HP ---
Admitting History and Physical - Primary Care Physician PCP: Mary Sumner - Admission Chief Complaint: Dysphagia History of Present Illness: This is a 65 y/o male with a PMHx of Asthma, COPD, Tobacco Dependency, GERD. Who presents to the ED with dysphagia x 4 days. Patient reports having burning to epigastrium with pain after eating steak and chicken recently. He reports being unable to tolerate secretions for 2 days, spitting constantly. Patient reports he was suppose to have an endoscopy, but was postponed due to the Covid Pandemic. Patient denies fever, chills, SOB, TIM, dizziness, CP, palpitations N/V/D, melena, hematochezia, dysuria. Patient reports his last BM was yesterday brown and soft. History Source: Patient Limitations to Obtaining History: No Limitations (speaks Russian and Belarusian) - Past Medical History Pulmonary: Yes: Asthma, COPD Gastrointestinal: Yes: GERD Musculoskeletal: Yes: Chronic low back pain - Past Surgical History Past Surgical History: Yes: None - Smoking History Smoking history: Current every day smoker Have you smoked in the past 12 months: Yes Aproximately how many cigarettes per day: 6 - Alcohol/Substance Use Hx Alcohol Use: Yes (previous heavy etoh use) History of Substance Use: reports: None - Social History Usual Living Arrangement: Yes: With Spouse Do you think of yourself as: Straight/Heterosexual ADL: Independent Occupation: Disabled History of Recent Travel: No Home Medications - Allergies Allergies/Adverse Reactions: Allergies Allergy/AdvReac Type Severity Reaction Status Date / Time No Known Allergies Allergy Verified 08/07/20 01:56 - Home Medications Home Medications: Ambulatory Orders Albuterol Sulfate Inhaler - [Ventolin HFA Inhaler -] 1 - 2 inh IH Q4H 12/10/12 Albuterol Sulfate Inhaler - [Ventolin HFA Inhaler -] 1 inh IH Q4H PRN #1 inh 11/26/14 Budesonide/Formeterol Fumarate [SYMBICORT 160/4.5mcg -] 1 puff IH BID 10/14/19 Oxycodone HCl/Acetaminophen [Oxycodone-Acetaminophen 5-325] 1 tab PO TID PRN 10/14/19 Ranitidine [Zantac -] 150 mg PO DAILY 10/14/19 Oxycodone HCl/Acetaminophen [Percocet 10-325 mg Tablet] 1 each PO Q6H PRN #12 tablet MDD 4 05/02/20 Family Medical History Family History: Unremarkable Review of Systems - Review of Systems Constitutional: reports: Loss of Appetite Eyes: reports: No Symptoms HENT: reports: Difficult Swallowing Neck: reports: No Symptoms Cardiovascular: reports: No Symptoms Respiratory: reports: No Symptoms Gastrointestinal: reports: Abdominal Pain, Dysphagia Genitourinary: reports: No Symptoms Breasts: reports: No Symptoms Reported Musculoskeletal: reports: No Symptoms Integumentary: reports: No Symptoms Neurological: reports: No Symptoms Endocrine: reports: No Symptoms Hematology/Lymphatic: reports: No Symptoms Psychiatric: reports: No Symptoms Pain Intensity: 6 Physical Examination Vital Signs: Vital Signs Temperature 98.2 F 08/07/20 01:35 Pulse Rate 86 08/07/20 01:35 Respiratory Rate 18 08/07/20 01:35 Blood Pressure 140/83 08/07/20 01:35 O2 Sat by Pulse Oximetry (%) 98 08/07/20 01:35 Constitutional: Yes: No Distress, Calm Eyes: Yes: WNL, Conjunctiva Clear, EOM Intact, PERRL HENT: Yes: WNL, Atraumatic, Normocephalic Neck: Yes: WNL, Supple, Trachea Midline Cardiovascular: Yes: Regular Rate and Rhythm, S1, S2 Respiratory: Yes: WNL, Regular, CTA Bilaterally Gastrointestinal: Yes: Normal Bowel Sounds, Soft, Tenderness, Epigastrium Renal/: Yes: WNL Breast(s): Yes: WNL Musculoskeletal: Yes: WNL Extremities: Yes: WNL Edema: No Peripheral Pulses WNL: Yes Neurological: Yes: WNL, Alert, Oriented, Cran Nerves II-XII Intact ...Motor Strength: WNL Psychiatric: Yes: WNL, Alert, Oriented Labs: CBC, BMP 08/07/20 02:47 08/07/20 04:57 Laboratory Results - last 24 hr 08/07/20 08/07/20 08/07/20 02:47 02:47 02:47 WBC 13.2 H RBC 5.06 Hgb 14.1 Hct 43.6 MCV 86.2 MCH 28.0 MCHC 32.5 RDW 17.2 H Plt Count 282 MPV 9.3 Absolute Neuts (auto) 11.0 H Neutrophils % 83.4 H Lymphocytes % 8.4 D Monocytes % 6.8 Eosinophils % 1.0 Basophils % 0.4 Nucleated RBC % 0 PT with INR 11.40 INR 0.94 PTT (Actin FS) 33.7 Sodium 121 L Potassium > 10.0 H* Chloride 102 Carbon Dioxide 22 Anion Gap -3 L BUN 9.4 Creatinine 0.9 Est GFR (CKD-EPI)AfAm 104.24 Est GFR (CKD-EPI)NonAf 89.94 Random Glucose 79 Calcium 8.4 L Total Bilirubin AST 181 H ALT Alkaline Phosphatase 100 Creatine Kinase 546 H Creatine Kinase Index 0.3 CK-MB (CK-2) 2.0 Troponin I < 0.02 Total Protein 8.9 H Albumin 3.6 SARS-CoV-2 (PCR) 08/07/20 08/07/20 02:47 04:57 WBC RBC Hgb Hct MCV MCH MCHC RDW Plt Count MPV Absolute Neuts (auto) Neutrophils % Lymphocytes % Monocytes % Eosinophils % Basophils % Nucleated RBC % PT with INR INR PTT (Actin FS) Sodium 139 Potassium 4.1 Chloride 108 H Carbon Dioxide 22 Anion Gap 9 BUN 10.8 Creatinine 0.8 Est GFR (CKD-EPI)AfAm 109.42 Est GFR (CKD-EPI)NonAf 94.41 Random Glucose 94 Calcium 8.6 Total Bilirubin AST ALT Alkaline Phosphatase Creatine Kinase Creatine Kinase Index CK-MB (CK-2) Troponin I Total Protein Albumin SARS-CoV-2 (PCR) Negative Current Medications Generic Name Dose Route Start Last Admin Trade Name Freq PRN Reason Stop Dose Admin Albuterol Sulfate 2 puff 08/07/20 05:45 Ventolin Hfa Inhaler - IH Q4H PRN SHORT OF BREATH/WHEEZING Budesonide/Formoterol Fumarate 2 puff 08/07/20 10:00 Symbicort 160/4.5mcg - IH BID YOLIE Dextrose/Sodium Chloride 1,000 mls @ 60 mls/hr 08/07/20 05:30 08/07/20 06:24 D5-1/2ns - IV Not Given ASDIR YOLIE Famotidine/Sodium Chloride 20 mg in 50 mls @ 100 mls/hr 08/07/20 10:00 Pepcid 20 Mg Premixed Ivpb - IVPB BID YOLIE Imaging - Results Chest X-ray: Image Reviewed Cat Scan: Report Reviewed, Image Reviewed EKG: Image Reviewed Problem List - Problems (1) Difficulty swallowing Assessment/Plan: CT Chest reviewed Appreciate GI consult Swallow Eval Consider Glucagon HOB elevated Aspiration Precautions Monitor vitals Code(s): R13.10 - DYSPHAGIA, UNSPECIFIED Qualifiers: Dysphagia type: unspecified Qualified Code(s): R13.10 - Dysphagia, unspecified (2) Epigastric pain Code(s): R10.13 - EPIGASTRIC PAIN (3) GERD (gastroesophageal reflux disease) Assessment/Plan: Protonix IV Code(s): K21.9 - GASTRO-ESOPHAGEAL REFLUX DISEASE WITHOUT ESOPHAGITIS (4) Hyponatremia Assessment/Plan: Likely due to hemolysis Repeat Na- 139 Code(s): E87.1 - HYPO-OSMOLALITY AND HYPONATREMIA (5) Hyperkalemia Assessment/Plan: Likely due to hemolysis Repeat K 4.1 Code(s): E87.5 - HYPERKALEMIA (6) COPD (chronic obstructive pulmonary disease) Assessment/Plan: stable No acute flare Continue home med Code(s): J44.9 - CHRONIC OBSTRUCTIVE PULMONARY DISEASE, UNSPECIFIED (7) Asthma Assessment/Plan: stable No acute flare Chest Xray- reviewed Albuterol MDI Monitor vitals O2 Code(s): J45.909 - UNSPECIFIED ASTHMA, UNCOMPLICATED (8) Tobacco dependence due to cigarettes Assessment/Plan: Counseled on smoking cessation Nicoderm Patch Code(s): F17.210 - NICOTINE DEPENDENCE, CIGARETTES, UNCOMPLICATED (9) Encounter for screening laboratory testing for COVID-19 virus Assessment/Plan: Low Risk COVID PCR-pending Isolation Precautions Code(s): Z20.828 - CONTACT W AND EXPOSURE TO OTH VIRAL COMMUNICABLE DISEASES Assessment/Plan This is a 65 y/o male with a PMHx of Asthma, COPD, Tobacco Dependency, GERD. Admitted to M/S for Dysphagia for further evaluation of their emergent condition. Plan: See Problem List FEN D50.45%NS@60ml/hr Monitor lytes NPO DVT ppx OOB SCDs Heparin SQ Dispo: Requires Inpatient Care Visit type - Emergency Visit Emergency Visit: Yes ED Registration Date: 08/07/20 Care time: The patient presented to the Emergency Department on the above date and was hospitalized for further evaluation of their emergent condition. - New Patient This patient is new to me today: Yes Date on this admission: 08/07/20 - Critical Care Critical Care patient: No
[2020-08-07] MEDS ORDERED: ALBUTEROL SO4 HFA INHALER IH PRN (05:45)
[2020-08-07] MEDS: DEXTROSE 5%-0.45% SALINE 1,000 ML IV SCH ×3 (06:24→21:10)
[2020-08-07 06:26] LABS: CALCIUM 8.6 mg/dL (8.5-10.1)
[2020-08-07 06:27] LABS: BLOOD UREA NITROGEN 10.8 mg/dL (7-18)
[2020-08-07 06:30] LABS: CREATININE 0.8 mg/dL (0.55-1.3)
[2020-08-07] MEDS ORDERED: SODIUM CHLORIDE 0.9% 500 ML INFUS.BAG IV ONE (06:33)
--- NOTE | 2020-08-07 07:22 | CON.GI ---
Consult Consult Specialty:: gi consult dictated -- egd today -- keep npo - Past Medical History Pulmonary: Yes: Asthma, COPD Gastrointestinal: Yes: GERD Musculoskeletal: Yes: Chronic low back pain - Past Surgical History Past Surgical History: Yes: None - Alcohol/Substance Use Hx Alcohol Use: Yes (previous heavy etoh use) History of Substance Use: reports: None - Smoking History Smoking history: Current every day smoker Have you smoked in the past 12 months: Yes Aproximately how many cigarettes per day: 6 - Social History Usual Living Arrangement: With Significant Other ADL: Independent Occupation: Disabled History of Recent Travel: No Home Medications - Allergies Allergies/Adverse Reactions: Allergies Allergy/AdvReac Type Severity Reaction Status Date / Time No Known Allergies Allergy Verified 08/07/20 01:56 - Home Medications Home Medications: Ambulatory Orders Albuterol Sulfate Inhaler - [Ventolin HFA Inhaler -] 1 - 2 inh IH Q4H 12/10/12 Albuterol Sulfate Inhaler - [Ventolin HFA Inhaler -] 1 inh IH Q4H PRN #1 inh 11/26/14 Budesonide/Formeterol Fumarate [SYMBICORT 160/4.5mcg -] 1 puff IH BID 10/14/19 Oxycodone HCl/Acetaminophen [Oxycodone-Acetaminophen 5-325] 1 tab PO TID PRN 10/14/19 Ranitidine [Zantac -] 150 mg PO DAILY 10/14/19 Oxycodone HCl/Acetaminophen [Percocet 10-325 mg Tablet] 1 each PO Q6H PRN #12 tablet MDD 4 05/02/20 Physical Exam-GI Vital Signs: Vital Signs Temperature 98.4 F 08/07/20 06:00 Pulse Rate 89 08/07/20 06:00 Respiratory Rate 16 08/07/20 06:00 Blood Pressure 106/54 L 08/07/20 06:00 O2 Sat by Pulse Oximetry (%) 97 08/07/20 06:00 Labs: CBC, BMP 08/07/20 02:47 08/07/20 04:57 INR, PTT INR 0.94 (0.83-1.09) 08/07/20 02:47
--- NOTE | 2020-08-07 10:48 | CONSULT ---
Admitting History and Physical - Admission History of Present Illness: 65 y/o male with a PMHx of Asthma, COPD, Tobacco Dependency, GERD. Who presents to the ED with dysphagia x 4 days. Patient reports having burning to epigastrium with pain after eating steak and chicken recently. He reports being unable to tolerate secretions for 2 days, spitting constantly. Patient reports he was suppose to have an endoscopy, but was postponed due to the Covid Pandemic. Selected Entries 08/07/20 08/07/20 08/07/20 01:35 06:00 07:25 Temperature 98.2 F 98.4 F 98.4 F Pulse Rate 86 Pulse Rate [ 89 68 Right Radial] Respiratory 18 16 17 Rate Respiratory Non-Labored Effort Blood Pressure 140/83 Blood Pressure 106/54 L 110/65 [Left Arm] O2 Sat by Pulse 98 97 100 Oximetry (%) Oxygen Delivery Room Air Room Air Method Laboratory Tests 08/07/20 08/07/20 02:47 02:47 WBC 13.2 H COVID-19 ([facility]) Pending CT [id number], fluid/debris filled. gi consult -- egd today -- keep npo - Past Medical History Pulmonary: Yes: Asthma, COPD Gastrointestinal: Yes: GERD Musculoskeletal: Yes: Chronic low back pain - Past Surgical History Past Surgical History: Yes: None - Smoking History Smoking history: Current every day smoker Have you smoked in the past 12 months: Yes Aproximately how many cigarettes per day: 6 - Alcohol/Substance Use Hx Alcohol Use: Yes (previous heavy etoh use) History of Substance Use: reports: None - Social History ADL: Independent Occupation: Disabled History of Recent Travel: No History - Admission Reason For Visit: DYSPHAGIA - Diagnostics X-ray: Report Reviewed CT Scan: Report Reviewed (Esophagus-dilated, fluid/debris filled.) Speech Evaluation - Communication Primary Language: ARABIC - Swallow Evaluation/Bedside Assessment Current Nutritional Intake: Clear Liquids Recommendations - Speech Evaluation, Impression/Plan Impression: Chart reviewed. CT [id number], fluid/debris filled. S/P EGD: HIATUS HERNIA. LA GRADE C ESOPHAGITIS. ERYTHEMATOUS GASTROPATHY. NO FOOD BOLUS. Clear liquids ordered by GI
[2020-08-07] MEDS ORDERED: MIDAZOLAM HCL 2 MG/2 ML SINGLE DOSE VIAL ONE (10:49)
--- NOTE | 2020-08-07 11:14 | CONS ---
DATE OF CONSULTATION: DATE OF DICTATION: 08/07/2020 HISTORY OF PRESENT ILLNESS: Patient is a 65-year-old man with a past medical history of COPD, asthma, tobacco dependency, reflux disease who was admitted to the hospital with complaint of dysphagia for 4 days. He states he ate steak last night and felt it get stuck and could not tolerate his secretions at the time. He states he was supposed to have an endoscopy during the COVID pandemic, however, did not secondary to the COVID pandemic. He denies nausea, vomiting, previous history of food impaction, previous history of dysphagia. No melena, hematochezia, constipation or diarrhea, shortness of breath. He has not had an endoscopic evaluation as mentioned previously. At this time he is actually tolerating his secretions. PAST MEDICAL & SURGICAL HISTORY: As listed in the HPI. ALLERGIES: No known drug allergies. SOCIAL HISTORY: He drinks occasionally and smokes every day. FAMILY HISTORY: No history of GI or gynecological malignancy. HOME MEDICATIONS: Reviewed include albuterol, budesonide, oxycodone, ranitidine. REVIEW OF SYSTEMS: As per the HPI. PHYSICAL EXAMINATION: Vital Signs: Temperature 98, pulse 89, blood pressure 106/54, oxygen saturation 97%. General: No acute distress. HEENT: Anicteric sclerae. Cardiovascular: S1, S2. Regular rate and rhythm. Lungs: Clear anteriorly bilaterally. Abdomen: Soft, nontender. Extremities: No edema. Neurologic: Intact. LABORATORIES: White blood cell count 13, hemoglobin 14 and hematocrit 43, MCV 86, platelet count 282, INR 0.9. Sodium 139, potassium 4, BUN 10 over creatinine 0.8, total bilirubin pending result. AST 181, ALT pending result, alkaline phosphatase 100. Troponin is negative. COVID testing is negative. He had a chest CT which revealed significant dilation of the entire esophagus that is fluid-filled and also with debris and retained food. No definitive mass identified. The dilation of the esophagus has significantly increased from the prior study. Again, noted scattered pleural thickenings the largest in the location of the posterior medial aspect of the right lower lobe. There is no mediastinal, axillary or hilar lymphadenopathy. No pulmonary nodules. Fatty infiltration of the liver. IMPRESSION: Dysphagia for 4 days also with a dilated esophagus and food impaction. These findings may be secondary to achalasia or stricture versus carcinoma since he does smoke cigarettes. RECOMMENDATION: N.p.o. Will plan for an urgent endoscopy today. Follow up remaining labs. Risks and benefits of the procedure were explained in detail including but not limited to perforation, bleeding, infection, anesthesia and risk of a tear in the bowel. DO JINA MCDUFFIE/[id number]
--- NOTE | 2020-08-07 11:15 | PN ---
Progress Note (short form) - Note Progress Note: BRIEF GI PROCEDURE NOTE EGD FINDINGS HIATUS HERNIA LA GRADE C ESOPHAGITIS ERYTHEMATOUS GASTROPATHY NO FOOD BOLUS REC: PPI 40 MG PO QD CLEAR LIQIUD DIET ADVANCE TO SOFT DIET REPEAT EGD WITH BIOPSY IN THREE WEEKS
--- NOTE | 2020-08-07 11:18 | PN ---
Progress Note, Physician Chief Complaint: Inability to swallow History of Present Illness: This is a 65 y/o male with a PMHx of Asthma, COPD, Tobacco Dependency, GERD. Who presents to the ED with dysphagia x 4 days. Patient reports having burning to epigastrium with pain after eating steak and chicken recently. He reports being unable to tolerate secretions for 2 days, spitting constantly. Patient reports he was suppose to have an endoscopy, but was postponed due to the Covid Pandemic. Patient denies fever, chills, SOB, TIM, dizziness, CP, palpitations N/V/D, melena, hematochezia, dysuria. Patient reports his last BM was yesterday brown and soft. S/P EGD: HIATUS HERNIA LA GRADE C ESOPHAGITIS ERYTHEMATOUS GASTROPATHY NO FOOD BOLUS - Current Medication List Current Medications: Active Medications Albuterol Sulfate (Ventolin Hfa Inhaler -) 2 puff IH Q4H PRN PRN Reason: SHORT OF BREATH/WHEEZING Budesonide/Formoterol Fumarate (Symbicort 160/4.5mcg -) 2 puff IH BID [facility] Dextrose/Sodium Chloride (D5-1/2ns -) 1,000 mls @ 60 mls/hr IV ASDIR YOLIE Last Admin: 08/07/20 06:24 Dose: Not Given Documented by: Famotidine/Sodium Chloride (Pepcid 20 Mg Premixed Ivpb -) 20 mg in 50 mls @ 100 mls/hr IVPB BID YOLIE - Objective Vital Signs: Vital Signs Temperature 98.4 F 08/07/20 07:25 Pulse Rate 68 08/07/20 07:25 Respiratory Rate 17 08/07/20 07:25 Blood Pressure 110/65 08/07/20 07:25 O2 Sat by Pulse Oximetry (%) 100 08/07/20 07:25 Constitutional: Yes: Well Nourished, No Distress, Calm Cardiovascular: Yes: Regular Rate and Rhythm Respiratory: Yes: Regular, CTA Bilaterally Gastrointestinal: Yes: Normal Bowel Sounds, Soft Genitourinary: Yes: WNL Musculoskeletal: Yes: WNL Extremities: Yes: WNL Edema: No Peripheral Pulses WNL: Yes Neurological: Yes: Alert, Oriented Psychiatric: Yes: Alert, Oriented Labs: CBC, BMP 08/07/20 02:47 08/07/20 04:57 INR, PTT INR 0.94 (0.83-1.09) 08/07/20 02:47 Problem List - Problems (1) GERD with esophagitis Assessment/Plan: -GI consult appreciated -PPI -H2B -Sucralfate qid -start clear liquid diet-advance as tolerated -S/P EGD:HIATUS HERNIA LA GRADE C ESOPHAGITIS ERYTHEMATOUS GASTROPATHY NO FOOD BOLUS Problems reviewed: Yes Code(s): K21.00 - GASTRO-ESOPHAGEAL REFLUX DIS WITH ESOPHAGITIS, WITHOUT BLEED (2) Abdominal pain Assessment/Plan: -resolved Problems reviewed: Yes Code(s): R10.9 - UNSPECIFIED ABDOMINAL PAIN Qualifiers: Abdominal location: epigastric Qualified Code(s): R10.13 - Epigastric pain (3) Difficulty swallowing Problems reviewed: Yes Code(s): R13.10 - DYSPHAGIA, UNSPECIFIED Qualifiers: Dysphagia type: unspecified Qualified Code(s): R13.10 - Dysphagia, unspecified (4) Leukocytosis Assessment/Plan: -Reactive -Repeat labs in AM Problems reviewed: Yes Code(s): D72.829 - ELEVATED WHITE BLOOD CELL COUNT, UNSPECIFIED Assessment/Plan If tolerating diet, would d/c in AM
[2020-08-07] MEDS ORDERED: PANTOPRAZOLE SODIUM 40 MG in SODIUM CHLORIDE 100 ML IVPB SCH (11:30)
--- NOTE | 2020-08-07 12:29 | EKG ---
Test Reason : Blood Pressure : / mmHG Vent. Rate : 083 BPM Atrial Rate : 083 BPM P-R Int : 128 ms QRS Dur : 084 ms QT Int : 380 ms P-R-T Axes : 051 002 036 degrees QTc Int : 446 ms NORMAL SINUS RHYTHM NORMAL ECG WHEN COMPARED WITH ECG OF 02-MAY-2020 00:32, NO SIGNIFICANT CHANGE WAS FOUND Confirmed by Nolberto Carcamo ([id number]) on 08/07/2020 12:29:15 PM Referred By: Confirmed By:Nolberto Carcamo
[2020-08-07 13:27] VITALS: BMI 25.1
[2020-08-07] MEDS ORDERED: PNEUMOC 13-VAL CONJ-DIP CRM/PF 0.5 ML DISP.SYRIN IM ONE (13:27)
[2020-08-07] MEDS ORDERED: PNEUMOCOCCAL 23 VACCINE 0.5 ML VIAL IM ONE (13:30)
[2020-08-07] MEDS: oxyCODONE HCL 5 MG TABLET PO PRN (15:53)
[2020-08-07] MEDS: FAMOTIDINE 20 MG/50 ML IVPB 20 MG/50 ML MG IVPB SCH ×2 (15:58→21:06)
[2020-08-07] MEDS: SUCRALFATE 1 GM/10 ML UNIT DOSE CUPS PO SCH ×2 (15:58→21:07)
[2020-08-07] MEDS: BUDESONIDE/FORMETEROL FUMARATE 160/4.5 mcg INHALER IH SCH ×2 (15:59→21:07)
[2020-08-07] MEDS: PANTOPRAZOLE SODIUM 40 MG VIAL IVPUSH SCH (15:59)
[2020-08-07] MEDS ORDERED: ACETAMINOPHEN 325 MG TABLET (FP) PO PRN (22:34)
[2020-08-08] MEDS: oxyCODONE HCL 5 MG TABLET PO PRN (02:16)
[2020-08-08] MEDS: SUCRALFATE 1 GM/10 ML UNIT DOSE CUPS PO SCH ×2 (06:29→11:15)
[2020-08-08] MEDS: DEXTROSE 5%-0.45% SALINE 1,000 ML IV SCH (06:30)
--- NOTE | 2020-08-08 08:17 | PN ---
Progress Note, Physician - Current Medication List Current Medications: Active Medications Acetaminophen (Tylenol -) 650 mg PO Q4H PRN PRN Reason: PAIN 1-5 OR FEVER Albuterol Sulfate (Ventolin Hfa Inhaler -) 2 puff IH Q4H PRN PRN Reason: SHORT OF BREATH/WHEEZING Budesonide/Formoterol Fumarate (Symbicort 160/4.5mcg -) 2 puff IH BID [facility] Last Admin: 08/07/20 21:07 Dose: 2 puff Documented by: Dextrose/Sodium Chloride (D5-1/2ns -) 1,000 mls @ 60 mls/hr IV [facility] Last Admin: 08/08/20 06:30 Dose: 60 mls/hr Documented by: Famotidine/Sodium Chloride (Pepcid 20 Mg Premixed Ivpb -) 20 mg in 50 mls @ 100 mls/hr IVPB BID [facility] Last Admin: 08/07/20 21:06 Dose: 100 mls/hr Documented by: Oxycodone HCl (Roxicodone -) 10 mg PO Q8H PRN PRN Reason: PAIN LEVEL 6-10 Last Admin: 08/08/20 02:16 Dose: 10 mg Documented by: Pantoprazole Sodium (Protonix Iv) 40 mg IVPUSH DAILY [facility] Last Admin: 08/07/20 15:59 Dose: 40 mg Documented by: Sucralfate (Carafate Oral Suspension -) 1 gm PO ACHS [facility] Last Admin: 08/08/20 06:29 Dose: 1 gm Documented by: - Objective Vital Signs: Vital Signs Temperature 98.2 F 08/08/20 06:00 Pulse Rate 73 08/08/20 06:00 Respiratory Rate 20 08/08/20 06:00 Blood Pressure 132/79 08/08/20 06:00 O2 Sat by Pulse Oximetry (%) 96 08/08/20 06:00 Labs: CBC, BMP 08/07/20 02:47 08/07/20 04:57 INR, PTT INR 0.94 (0.83-1.09) 08/07/20 02:47
[2020-08-08 09:10] LABS: BASO % 0.9 % (0-2.0); EOS % 4.4 % (0-4.5); HEMOGLOBIN 12.2 GM/dL (11.7-16.9); MCH 27.7 pg (25.7-33.7); MCHC 32.2 g/dl (32.0-35.9); MEAN CELL VOLUME 86.1 fl (80-96); MEAN PLT VOLUME 9.6 fl (7.5-11.1); MONO % 12.5 % (3.8-10.2); NEUT % 62.2 % (42.8-82.8); PLATELET COUNT 233 K/MM3 (134-434); RBC 4.41 M/mm3 (4.00-5.60); RDW 16.4 % (11.9-15.9); WHITE BLOOD COUNT 6.9 K/mm3 (4.0-10.0)
[2020-08-08 09:37] LABS: POTASSIUM 3.6 mmol/L (3.5-5.1)
[2020-08-08] MEDS ORDERED: PT OWN MED DRAWER 7, Y5N ONE (09:47)
[2020-08-08] MEDS: PANTOPRAZOLE SODIUM 40 MG VIAL IVPUSH SCH (09:53)
--- NOTE | 2020-08-08 09:53 | PN ---
Progress Note, PIECE HAND - Note Progress Note: Selected Entries 08/07/20 08/08/20 23:00 06:00 Supper 100% Temperature 98.2 F Pulse Rate 73 Blood Pressure 132/79 O2 Sat by Pulse 96 Oximetry (%) Laboratory Tests 08/07/20 08/08/20 02:47 08:15 WBC 13.2 H 6.9 Tolerating clear liquids. requesting regular diet. Pt reports no difficulty swallowing before 2 days before admission. Poor dentition with stubs, which pt attributes to reflux and grinding teeth at night. Overtly tolerated mastication of cracker. Reviewed with pt eating softer foods, chewing well, alternating solids with liquids fer completing meal with liquids. GERD precautions. Diet upgrade, as tolerated, per PMD/GI MBS as outpt if difficulty persists.
[2020-08-08] MEDS: BUDESONIDE/FORMETEROL FUMARATE 160/4.5 mcg INHALER IH SCH (09:54)
[2020-08-08] MEDS: FAMOTIDINE 20 MG/50 ML IVPB 20 MG/50 ML MG IVPB SCH (09:54)
[2020-08-08 10:52] LABS: ALBUMIN 2.9 g/dl (3.4-5.0); BILIRUBIN,TOTAL 0.6 mg/dL (0.2-1); CALCIUM 8.5 mg/dL (8.5-10.1); CREATININE 0.8 mg/dL (0.55-1.3); TOT PROT 5.6 g/dl (6.4-8.2)
[2020-08-08 14:16] VITALS: BP 144/75; PULSE 71; TEMP 98.5
--- NOTE | 2020-08-08 14:54 | PN.GI ---
GI Progress Note Subjective: Tolerated PO - Objective Vital Signs: Vital Signs Temperature 98.5 F 08/08/20 14:15 Pulse Rate 71 08/08/20 14:15 Respiratory Rate 20 08/08/20 14:15 Blood Pressure 144/75 08/08/20 14:15 O2 Sat by Pulse Oximetry (%) 99 08/08/20 14:15 Constitutional: Calm Eyes: No: Sclera Icterus Cardiovascular: Yes: Regular Rate and Rhythm Respiratory: Yes: CTA Bilaterally Gastrointestinal Inspection: No: Distention ...Auscultate: Yes: Normoactive Bowel Sounds ...Palpate: Yes: Soft. No: Hepatomegaly, Splenomegaly, Tenderness ...Percussion: No: Tympanitic Edema: No (No LE edema) Neurological: Yes: Alert Labs: CBC, BMP 08/08/20 08:15 08/08/20 08:15 INR, PTT INR 0.94 (0.83-1.09) 08/07/20 02:47 Hepatic Panel Total Bilirubin 0.6 mg/dL (0.2-1) 08/08/20 08:15 AST 41 U/L (15-37) H 08/08/20 08:15 ALT 45 U/L (13-61) 08/08/20 08:15 Alkaline Phosphatase 74 U/L (45-117) 08/08/20 08:15 Albumin 2.9 g/dl (3.4-5.0) L 08/08/20 08:15 Problem List - Problems (1) Esophagitis Assessment/Plan: Protonix 40mg PO BID for 3 days followed by once daily Carafate suspension 1g BID for 5 days Chopped diet Advised patient avoidance of bulk meats and breads Will need repeat EGD in 4-6 weeks for reassessment Code(s): K20.90 - ESOPHAGITIS, UNSPECIFIED WITHOUT BLEEDING
--- NOTE | 2020-08-08 15:51 | DS ---
Physical Examination Vital Signs: Vital Signs Temperature 98.5 F 08/08/20 14:15 Pulse Rate 71 08/08/20 14:15 Respiratory Rate 20 08/08/20 14:15 Blood Pressure 144/75 08/08/20 14:15 O2 Sat by Pulse Oximetry (%) 99 08/08/20 14:15 Constitutional: Yes: No Distress Cardiovascular: Yes: WNL Respiratory: Yes: WNL Gastrointestinal: Yes: Soft Labs: CBC, BMP 08/08/20 08:15 08/08/20 08:15 Discharge Summary Problems reviewed: Yes Reason For Visit: DYSPHAGIA Current Active Problems Abdominal pain (Acute) COPD (chronic obstructive pulmonary disease) (Acute) Difficulty swallowing (Acute) Encounter for screening laboratory testing for COVID-19 virus (Acute) Esophagitis (Acute) GERD (gastroesophageal reflux disease) (Acute) GERD with esophagitis (Acute) Hyperkalemia (Acute) Hyponatremia (Acute) Leukocytosis (Acute) Tobacco dependence due to cigarettes (Acute) Procedures: Principal: EGD Hospital Course: ADMITTED FOR EGD ABD PAIN FOUND TO HAVE SEVERE GASTRITIS AND INFLAMMATION Plan of Treatment: GASTRITIS AND INFLAMMATION SEEN ON EGD Condition: Fair - Instructions Diet, Activity, Other Instructions: PROTONIX BID SEE DR SUMNER IN 2 WEEKS Referrals: Kinjal Guillen DO [Staff Physician] - Mary Sumner MD [Primary Care Provider] - - Home Medications Comprehensive Discharge Medication List: Ambulatory Orders Albuterol Sulfate Inhaler - [Ventolin HFA Inhaler -] 1 - 2 inh IH Q4H 12/10/12 Albuterol Sulfate Inhaler - [Ventolin HFA Inhaler -] 1 inh IH Q4H PRN #1 inh 11/26/14 Budesonide/Formeterol Fumarate [SYMBICORT 160/4.5mcg -] 1 puff IH BID 10/14/19 Oxycodone HCl/Acetaminophen [Oxycodone-Acetaminophen 5-325] 1 tab PO TID PRN Ranitidine [Zantac -] 150 mg PO DAILY 10/14/19 Oxycodone HCl/Acetaminophen [Percocet 10-325 mg Tablet] 1 each PO Q6H PRN #12 tablet MDD 4 05/02/20 Acetaminophen [Tylenol .Regular Strength -] 650 mg PO Q4H PRN tablet 08/08/20 Albuterol Sulfate Inhaler - [Ventolin HFA Inhaler -] 2 puff IH Q4H PRN #1 inhaler 08/08/20 Pantoprazole Sodium [Protonix -] 40 mg PO BID #60 tablet.ec 08/08/20 Sucralfate Oral Suspension [Carafate Oral Suspension -] 1 gm PO ACHS #90 ml 08/08/20 oxyCODONE HCL [Roxicodone -] 10 mg PO Q8H PRN tablet 08/08/20 Prescription Drug Monitoring Program (I-STOP) results: I-STOP not reviewed
[2020-08-08] MEDS ORDERED: PANTOPRAZOLE 40 MG TABLET PO SCH (22:00)
== END 2020-08-08 17:11 | disposition home or self-care (01) | DRG 392 ==
LOC: JER 01:33 → JERBED 04:28 → J6S 12:43
PROVIDERS: ADMIT Internal Medicine; ATTEND Family Medicine
PROC: 0DJ08ZZ Inspection of Upper Intestinal Tract, Via Natural or Artificial Opening Endoscopic (ICD-10-PCS; principal; 2020-08-07 10:15)
DX: K21.00 Gastro-esophageal reflux disease with esophagitis, without bleeding (principal); E87.1 Hypo-osmolality and hyponatremia; J44.9 Chronic obstructive pulmonary disease, unspecified; R13.10 Dysphagia, unspecified; F17.200 Nicotine dependence, unspecified, uncomplicated; K21.9 Gastro-esophageal reflux disease without esophagitis; M54.5 Low back pain; E87.5 Hyperkalemia; J45.909 Unspecified asthma, uncomplicated; Z20.828 Contact with and (suspected) exposure to other viral communicable diseases; K44.9 Diaphragmatic hernia without obstruction or gangrene; D72.829 Elevated white blood cell count, unspecified; K29.70 Gastritis, unspecified, without bleeding
CPT/HCPCS: 36415; 71045-TC-FY; 71250-TC; 80048; 80053; 82550; 82553; 84484; 85025; 85610; 85730; 86850; 86900; 86901; 90732; 93005; 93010; 99285-25; C9803; G0009; U0003

== ENCOUNTER 2021-10-23 12:59 | Emergency (ER) | payer OTHER ==
[2021-10-23] MEDS ORDERED: SOTROVIMAB 500 MG in SODIUM CHLORIDE 100 ML IVPB ONE (13:20)
[2021-10-23 13:31] VITALS: BMI 27.9
[2021-10-23 14:09] VITALS: TEMP 98.9
[2021-10-23] MEDS ORDERED: ACETAMINOPHEN 1000 MG/100 ML BAG IVPB ONE (15:03)
[2021-10-23 15:29] VITALS: BP 103/60; PULSE 72
== END 2021-10-23 16:13 | disposition home or self-care (01) ==
LOC: JER 12:59 → JCOVINFU 12:59
PROC: 3E0333Z Introduction of Anti-inflammatory into Peripheral Vein, Percutaneous Approach (ICD-10-PCS; principal; 2021-10-23)
PROC: 3E03329 Introduction of Other Anti-infective into Peripheral Vein, Percutaneous Approach (ICD-10-PCS; 2021-10-23)
DX: U07.1 COVID-19 (principal)
CPT/HCPCS: 99284-25; J0131; M0247; Q0247

== ENCOUNTER 2022-12-10 00:11 | Inpatient (IN) | payer OTHER ==
[2022-12-10 00:16] VITALS: BMI 28.3
[2022-12-10] MEDS ORDERED: ACETAMINOPHEN 1000 MG/100 ML BAG IVPB ONE (01:03)
[2022-12-10] MEDS ORDERED: FAMOTIDINE 20 MG/50 ML IVPB 20 MG/50 ML MG IVPB ONE (01:03)
[2022-12-10] MEDS ORDERED: ONDANSETRON 4 MG/2 ML VIAL IVPUSH ONE (01:03)
[2022-12-10] MEDS ORDERED: SODIUM CHLORIDE 0.9% 500 ML INFUS.BAG IV ONE (01:03)
[2022-12-10] MEDS ORDERED: ACETAMINOPHEN INJECTION 100 ML IVPB ONE (01:45)
[2022-12-10] MEDS ORDERED: ONDANSETRON 4 MG/2 ML VIAL ONE (01:45)
[2022-12-10] MEDS ORDERED: FAMOTIDINE 10 MG/ML VIAL IVPB ONE (01:46)
[2022-12-10 02:44] LABS: HEMATOCRIT 28.1 % (35.4-49); HEMOGLOBIN 8.4 GM/dL (11.7-16.9); MCHC 29.9 g/dl (32.0-35.9); MEAN CELL VOLUME 62.9 fl (80-96); MEAN PLT VOLUME 9.3 fl (7.5-11.1); PLATELET COUNT 334 10^3/uL (134-434); RBC 4.47 M/mm3 (4.00-5.60); RDW 20.4 % (11.9-15.9); WHITE BLOOD COUNT 7.1 K/mm3 (4.0-10.0)
[2022-12-10 02:48] LABS: MCH 18.8 pg (25.7-33.7)
[2022-12-10 02:54] LABS: ALBUMIN 3.7 g/dl (3.4-5.0); BLOOD UREA NITROGEN 14.2 mg/dL (7-18); CALCIUM 8.4 mg/dL (8.5-10.1)
[2022-12-10 02:58] LABS: BILIRUBIN,TOTAL 0.3 mg/dL (0.2-1)
[2022-12-10 02:59] LABS: TOT PROT 7.2 g/dl (6.4-8.2)
[2022-12-10 03:29] LABS: ANISOCYTOSIS 2+; HELMET CELLS 1+; MACROCYTOSIS 0; ROULEAU 1+
[2022-12-10] MEDS ORDERED: ALBUTEROL SO4 HFA INHALER IH PRN (06:08)
[2022-12-10] MEDS: DEXTROSE 5%-NORMAL SALINE 1,000 ML IV SCH (06:52)
[2022-12-10 07:03] LABS: CALCIUM 8.3 mg/dL (8.5-10.1)
[2022-12-10 07:04] LABS: BLOOD UREA NITROGEN 12.7 mg/dL (7-18); MAGNESIUM 2.6 mg/dL (1.8-2.4)
[2022-12-10 07:07] LABS: CREATININE 0.9 mg/dL (0.55-1.3); PHOSPHOROUS 4.6 mg/dL (2.5-4.9)
[2022-12-10] MEDS ORDERED: ACETAMINOPHEN 1000 MG/100 ML BAG IVPB PRN (08:00)
[2022-12-10 08:22] LABS: EOS % 4.7 % (0-4.5); HEMATOCRIT 26.2 % (35.4-49); HEMOGLOBIN 7.8 GM/dL (11.7-16.9); LYMPH % 50.6 % (8-40); MEAN CELL VOLUME 62.5 fl (80-96); MONO % 5.5 % (3.8-10.2); NEUT % 38.2 % (42.8-82.8); PLATELET COUNT 314 10^3/uL (134-434); RBC 4.19 M/mm3 (4.00-5.60)
[2022-12-10 08:38] LABS: MCH 18.7 pg (25.7-33.7)
[2022-12-10 09:19] LABS: INR 1.11 (0.83-1.09); PROTHROMBIN TIME (PATIENT) 12.9 SEC (9.7-13.0)
[2022-12-10 09:22] LABS: ACTIVATED PTT 29.3 SECONDS (25.2-36.5)
[2022-12-10] MEDS ORDERED: FLU VACC QS2022-23(6MOS UP)/PF 60 MCG/0.5 ML SYRINGE IM ONE (09:30)
[2022-12-10] MEDS ORDERED: IRON SUCROSE INJECTION 200 MG in SODIUM CHLORIDE 90 ML IVPB ONE (12:00)
[2022-12-10] MEDS ORDERED: TETRACAINE/BENZOCAINE/BUTAMBEN 20 GM SPR TP ONE (12:02)
[2022-12-10] MEDS ORDERED: MIDAZOLAM HCL 2 MG/2 ML SINGLE DOSE VIAL ONE (12:15)
[2022-12-10] MEDS: PANTOPRAZOLE 40 MG TABLET PO SCH (13:58)
[2022-12-10] MEDS: BUDESONIDE/FORMETEROL FUMARATE 160/4.5 mcg INHALER IH SCH ×3 (13:59→21:06)
[2022-12-10] MEDS ORDERED: BISACODYL 5 MG TABLET.DR (FP) PO ONE (16:00)
[2022-12-10] MEDS ORDERED: PEG 3350/NA SULF BICARB CL/KCL 4000 ML SOLN.RECON PO ONE (17:00)
[2022-12-11 06:55] LABS: BASO % 1.4 % (0-2.0); EOS % 3.3 % (0-4.5); HEMATOCRIT 26.6 % (35.4-49); HEMOGLOBIN 8.3 GM/dL (11.7-16.9); MEAN CELL VOLUME 63.1 fl (80-96); MEAN PLT VOLUME 9.3 fl (7.5-11.1); MONO % 6.5 % (3.8-10.2); NEUT % 83.8 % (42.8-82.8); PLATELET COUNT 292 10^3/uL (134-434); RBC 4.22 M/mm3 (4.00-5.60); RDW 20.4 % (11.9-15.9); WHITE BLOOD COUNT 9.1 K/mm3 (4.0-10.0)
[2022-12-11 07:10] LABS: BLOOD UREA NITROGEN 7.8 mg/dL (7-18)
[2022-12-11 07:11] LABS: CALCIUM 8.1 mg/dL (8.5-10.1)
[2022-12-11 07:14] LABS: CREATININE 0.9 mg/dL (0.55-1.3)
[2022-12-11 07:24] LABS: MCH 19.6 pg (25.7-33.7)
[2022-12-11 09:11] LABS: URINE APPEARANCE CLEAR; URINE BILIRUBIN NEGATIVE (NEGATIVE); URINE COLOR YELLOW; URINE GLUCOSE (UA) NEGATIVE (NEGATIVE); URINE KETONE TRACE (NEGATIVE); URINE LEUK ESTERASE NEGATIVE (NEGATIVE); URINE NITRITE NEGATIVE (NEGATIVE); URINE PROTEIN NEGATIVE (NEGATIVE); URINE UROBILINOGEN 0.2 mg/dL (0.2-1.0)
[2022-12-11] MEDS ORDERED: ACETAMINOPHEN 500 MG TABLET (FP) PO PRN (10:24)
[2022-12-11] MEDS: BUDESONIDE/FORMETEROL FUMARATE 160/4.5 mcg INHALER IH SCH (10:45)
[2022-12-11] MEDS: PANTOPRAZOLE 40 MG TABLET PO SCH (10:46)
[2022-12-11] MEDS: DEXTROSE 5%-NORMAL SALINE 1,000 ML IV SCH (10:47)
[2022-12-11] MEDS ORDERED: IRON SUCROSE INJECTION 200 MG in SODIUM CHLORIDE 90 ML IVPB ONE (12:00)
[2022-12-11 14:02] VITALS: BP 140/73; PULSE 72; RESP 20; TEMP 98.8
[2022-12-12] MEDS ORDERED: IRON SUCROSE INJECTION 200 MG in SODIUM CHLORIDE 90 ML IVPB ONE (12:00)
== END 2022-12-11 16:58 | disposition home or self-care (01) | DRG 392 ==
LOC: JER 00:11 → JERBED 04:11 → J4W 09:13
PROVIDERS: ADMIT Internal Medicine; ATTEND Family Medicine
PROC: 0DJ08ZZ Inspection of Upper Intestinal Tract, Via Natural or Artificial Opening Endoscopic (ICD-10-PCS; principal; 2022-12-10 11:45)
PROC: 0DJD8ZZ Inspection of Lower Intestinal Tract, Via Natural or Artificial Opening Endoscopic (ICD-10-PCS; 2022-12-11)
DX: K22.2 Esophageal obstruction (principal); K21.9 Gastro-esophageal reflux disease without esophagitis; J44.9 Chronic obstructive pulmonary disease, unspecified; F17.210 Nicotine dependence, cigarettes, uncomplicated; R55 Syncope and collapse; M54.50 Low back pain, unspecified; I10 Essential (primary) hypertension; T18.128A Food in esophagus causing other injury, initial encounter; K21.00 Gastro-esophageal reflux disease with esophagitis, without bleeding; K44.9 Diaphragmatic hernia without obstruction or gangrene; K57.90 Diverticulosis of intestine, part unspecified, without perforation or abscess without bleeding; R13.10 Dysphagia, unspecified; D50.9 Iron deficiency anemia, unspecified
CPT/HCPCS: 36415; 36430; 71250-TC; 74176-TC; 80048; 80053; 81003; 82728; 83540; 83550; 83605; 83690; 83735; 84100; 84484; 85025; 85610; 85730; 86850; 86900; 86901; 86922; 87086; 93005; 93010; 99285-25; C9803-CS; G0008; J1756; P9058; Q2036; U0003; U0005

== ENCOUNTER 2024-05-01 03:12 | Emergency (ER) | payer MEDICARE ==
[2024-05-01 03:18] VITALS: TEMP 98.6; BMI 28.3
[2024-05-01] MEDS ORDERED: MAG HYDROX/AL HYDROX/SIMETH 30 ML UNIT-DOSE CUP ONE (04:02)
[2024-05-01] MEDS ORDERED: FAMOTIDINE 20 MG/50 ML IVPB 20 MG/50 ML MG IVPB ONE (04:02)
[2024-05-01] MEDS ORDERED: ONDANSETRON 4 MG/2 ML VIAL ONE (04:02)
[2024-05-01] MEDS ORDERED: ACETAMINOPHEN INJECTION 100 ML IVPB ONE (04:02)
[2024-05-01] MEDS: MAG HYDROX/AL HYDROX/SIMETH 30 ML UNIT-DOSE CUP PO ONE (04:19)
[2024-05-01] MEDS: LACTATED RINGERS SOLUTION 1000 ML INFUS.BAG IV ONE (04:19)
[2024-05-01] MEDS: FAMOTIDINE 20 MG/50 ML IVPB 20 MG/50 ML MG IVPB ONE (04:20)
[2024-05-01] MEDS: ONDANSETRON 4 MG/2 ML VIAL IVPUSH ONE (04:20)
[2024-05-01] MEDS: ACETAMINOPHEN 1000 MG/100 ML BAG IVPB ONE (04:20)
[2024-05-01] MEDS ORDERED: ALBUTEROL SO4 HFA INHALER IH ONE (04:25)
[2024-05-01] MEDS: ALBUTEROL SO4 HFA INHALER IH ONE (04:25)
[2024-05-01 04:51] LABS: POTASSIUM 4.1 mmol/L (3.5-5.1)
[2024-05-01 04:53] LABS: CALCIUM 8.2 mg/dL (8.5-10.1)
[2024-05-01 04:54] LABS: ALBUMIN 3.3 g/dl (3.4-5.0); BLOOD UREA NITROGEN 10.7 mg/dL (7-18); MAGNESIUM 2.4 mg/dL (1.8-2.4)
[2024-05-01 04:55] LABS: INR 1.05 (0.83-1.09); PROTHROMBIN TIME (PATIENT) 11.8 SEC (9.7-13.0)
[2024-05-01 04:56] LABS: CREATININE 0.8 mg/dL (0.55-1.3)
[2024-05-01 04:57] LABS: ACTIVATED PTT 30.6 SECONDS (25.2-36.5)
[2024-05-01 04:58] LABS: BILIRUBIN,TOTAL 0.3 mg/dL (0.2-1); TOT PROT 6.6 g/dl (6.4-8.2)
[2024-05-01 05:31] LABS: HEMOGLOBIN 7.5 GM/dL (11.7-16.9); MCHC 29.8 g/dl (32.0-35.9); MEAN CELL VOLUME 61.9 fl (80-96); MEAN PLT VOLUME 8.7 fl (7.5-11.1); PLATELET COUNT 235 10^3/uL (134-434); RBC 4.05 M/mm3 (4.00-5.60); RDW 20.8 % (11.9-15.9); WHITE BLOOD COUNT 10.6 K/mm3 (4.0-10.0)
[2024-05-01 05:35] LABS: MCH 18.5 pg (25.7-33.7)
[2024-05-01] MEDS: MAG HYDROX/ALH/SMC/DPHA/LIDO 240 ML MOUTHWASH MM ONE (06:15)
[2024-05-01 07:28] LABS: ANISOCYTOSIS 3+; MACROCYTOSIS 0; ROULEAU 1+; TARGET CELLS 1+
[2024-05-01 08:31] VITALS: BP 128/63; PULSE 76; RESP 16
== END 2024-05-01 10:13 | disposition home or self-care (01) ==
LOC: JER 03:12
PROC: 3E033GC Introduction of Other Therapeutic Substance into Peripheral Vein, Percutaneous Approach (ICD-10-PCS; principal; 2024-05-01)
PROC: 3E033NZ Introduction of Analgesics, Hypnotics, Sedatives into Peripheral Vein, Percutaneous Approach (ICD-10-PCS; 2024-05-01)
PROC: 3E033GC Introduction of Other Therapeutic Substance into Peripheral Vein, Percutaneous Approach (ICD-10-PCS; 2024-05-01)
DX: K21.9 Gastro-esophageal reflux disease without esophagitis (principal); R11.2 Nausea with vomiting, unspecified; R10.13 Epigastric pain; Z20.822 Contact with and (suspected) exposure to COVID-19
CPT/HCPCS: 0241U-QW; 36415; 71045-TC-FY; 74177-TC; 80053; 83690; 83735; 84484; 85025; 85610; 85730; 93005; 93010; 96365; 96375; 99285-25; J0131; Q9967

== ENCOUNTER 2025-02-08 23:01 | Emergency (ER) | payer MEDICARE ==
[2025-02-08 23:16] VITALS: RESP 20; TEMP 98.5; BMI 26.6
[2025-02-09 00:45] VITALS: BP 113/58; PULSE 78
[2025-02-09 02:00] LABS: ABSOLUTE IMMATURE GRANULOCYTES 0.04 x10^3/uL (0.0-0.031); BASOPHILS # 0.18 x10^3/uL (0.01-0.08); EOSINOPHIL % 2.5 % (0.8-7.0); EOSINOPHILS # 0.25 x10^3/uL (0.04-0.54); HEMATOCRIT 29.9 % (40.1-51.0); HEMOGLOBIN 8.5 g/dL (13.7-17.5); MCHC 28.4 g/dl (32.3-36.5); MEAN PLT VOLUME 9.4 fl (9.4-12.4); MONOCYTE # 0.78 x10^3/uL (0.30-0.82); MONOCYTE % 7.8 % (5.3-12.2); PLATELET COUNT 581 x10^3/uL (163-337); RDW 21.7 % (12.2-16.4)
[2025-02-09 03:18] LABS: POTASSIUM 4.2 mmol/L (3.5-5.1)
[2025-02-09 03:20] LABS: CALCIUM 9.3 mg/dL (8.5-10.1)
[2025-02-09 03:21] LABS: ALBUMIN 3.4 g/dl (3.4-5.0)
[2025-02-09 03:24] LABS: CREATININE 0.8 mg/dL (0.55-1.3)
[2025-02-09 03:25] LABS: BILIRUBIN,TOTAL 0.2 mg/dL (0.2-1)
[2025-02-09 03:26] LABS: TOT PROT 7.2 g/dl (6.4-8.2)
== END 2025-02-09 04:05 | disposition home or self-care (01) ==
LOC: JER 23:01
DX: R09.A2 Foreign body sensation, throat (principal); R07.89 Other chest pain; K11.7 Disturbances of salivary secretion; R53.1 Weakness
CPT/HCPCS: 36415; 80053; 85025; 99283-25

== ENCOUNTER 2025-08-02 13:01 | Emergency (ER) | payer MEDICARE ==
[2025-08-02 15:01] LABS: MCHC 27.9 g/dl (32.3-36.5); MEAN CELL VOLUME 66.3 fl (79.0-92.2); RDW 20.5 % (12.2-16.4)
[2025-08-02] MEDS: SODIUM CHLORIDE 0.9% 500 ML INFUS.BAG IV ONE (15:04)
[2025-08-02 15:18] VITALS: BP 140/62; PULSE 63; RESP 17; TEMP 97.8; BMI 28.1
[2025-08-02 15:22] LABS: GLUCOSE,RANDOM 83.0 mg/dL (74-106)
[2025-08-02 15:23] LABS: TOT PROT 6.4 g/dl (6.4-8.2)
[2025-08-02 15:24] LABS: CO2 21.0 mmol/L (21-32)
[2025-08-02 15:26] LABS: ALK PHOS 72.0 U/L (40-150)
[2025-08-02 15:28] LABS: SGOT/AST 44.0 U/L (5-34); SGPT/ALT 41.0 U/L (0-55)
[2025-08-02 15:29] LABS: CREATININE 0.93 mg/dL (0.55-1.3)
[2025-08-02 17:05] LABS: URINE APPEARANCE CLEAR; URINE BILIRUBIN NEGATIVE (NEGATIVE); URINE COLOR YELLOW; URINE GLUCOSE (UA) NEGATIVE (NEGATIVE); URINE KETONE NEGATIVE (NEGATIVE); URINE LEUK ESTERASE NEGATIVE (NEGATIVE); URINE NITRITE NEGATIVE (NEGATIVE); URINE PROTEIN NEGATIVE (NEGATIVE); URINE UROBILINOGEN 0.2 mg/dL (0.2-1.0)
== END 2025-08-02 19:07 | disposition home or self-care (01) ==
LOC: JER 13:01
DX: E86.0 Dehydration (principal); R55 Syncope and collapse; R42 Dizziness and giddiness; R61 Generalized hyperhidrosis; R11.2 Nausea with vomiting, unspecified
CPT/HCPCS: 36415; 70450-TC; 71045-TC-FY; 80053; 81003; 83690; 83735; 84484; 85025; 87086; 87637-QW; 93005; 93010; 99285-25